=== PATIENT | female | born 1980 | race African-American/Black ===

== ENCOUNTER 2022-03-12 06:07 | Day surgery (SDC) | payer BC ==
[2022-03-12] MEDS ORDERED: Ringers Lactate 1,000 ML IV ONE (06:59)
[2022-03-12] MEDS ORDERED: GLUCAGON 1 MG/VIAL ONE (07:28)
[2022-03-12] MEDS ORDERED: GENTAMICIN SULF 80 MG/2ML INJ ONE (07:28)
[2022-03-12] MEDS ORDERED: FENTANYL CITR 100 MCG/2 ML ONE (07:43)
[2022-03-12] MEDS ORDERED: propofoL 200 MG/20 ML VIAL IV ONE (07:43)
[2022-03-12] MEDS ORDERED: LIDOCAINE 1% MPF 5 ML VIAL ONE (07:44)
--- NOTE | 2022-03-12 09:08 | RAD REPORT ---
EXAM DESCRIPTION: Fluoroscopy for ERCP CLINICAL HISTORY: ERCP, STENT AND STONE REMOVAL Abdominal pain FINDINGS: Fluoroscopic images submitted from ERCP procedure. Details and diagnostic findings of the procedure are not available. Total fluoroscopy time: 9.2 minutes
[2022-03-12] MEDS ORDERED: CEFAZOLIN 2 GM IN 0.9% NACL 2 GM/100 ML BAG ONE (09:14)
[2022-03-12 09:26] VITALS: BP 102/63; TEMP 97.3; O2SAT 100
[2022-03-12] MEDS ORDERED: ONDANSETRON 4 MG/2 ML VIAL ONE (09:48)
== END 2022-03-12 10:54 | disposition home or self-care (01) ==
LOC: OR 06:07
PROVIDERS: ATTEND Internal Medicine Gastroenterology
PROC: 0FC98ZZ Extirpation of Matter from Common Bile Duct, Via Natural or Artificial Opening Endoscopic (ICD-10-PCS; 2022-03-12)
PROC: 0F798ZZ Dilation of Common Bile Duct, Via Natural or Artificial Opening Endoscopic (ICD-10-PCS; 2022-03-12)
PROC: 0FPB8DZ Removal of Intraluminal Device from Hepatobiliary Duct, Via Natural or Artificial Opening Endoscopic (ICD-10-PCS; principal; 2022-03-12 07:30)
DX: K80.00 Calculus of gallbladder with acute cholecystitis without obstruction (principal); R10.10 Upper abdominal pain, unspecified; R94.5 Abnormal results of liver function studies; Z20.822 Contact with and (suspected) exposure to COVID-19
CPT/HCPCS: 81025; 43275; 43264; 43262; U0003; J2704; J1610; J1580; J3010; J0690; J7120; J2405; C1769 ×2